=== PATIENT | female | born 1955 | race Caucasian/White ===

== ENCOUNTER 2016-11-18 17:11 | Emergency (ER) | payer BC ==
[2016-11-18 21:04] LABS: HEMOGLOBIN 11.5 gm/dl (12.3-15.3); RED BLOOD COUNT 3.88 M/UL (4.00-5.10); WHITE BLOOD COUNT 3.2 K/UL (4.5-11.0)
[2016-11-18 21:31] LABS: BUN/CREATININE RATIO 25 (0-10)
== END 2016-11-18 23:17 | disposition left against medical advice (07) ==
LOC: ER1 17:11
PROVIDERS: Emergency Medicine
DX: J11.1 Influenza due to unidentified influenza virus with other respiratory manifestations (principal); R09.1 Pleurisy; I10 Essential (primary) hypertension; E11.9 Type 2 diabetes mellitus without complications
CPT/HCPCS: 36415; 71020; 80053; 83690; 83880; 84484; 85025; 85379; 85610; 85730; 93005; 96360; 96361; 99284; J7050; Q9963